=== PATIENT | male | born 1975 | race Caucasian/White ===

== ENCOUNTER 2020-12-27 21:25 | Emergency (ER) | payer MEDICAID ==
[~2020-12-27] VITALS: Ht 170.2 cm; Wt 77.1 kg
[2020-12-27 21:50] VITALS: BP 160/89
--- NOTE | 2020-12-27 21:53 | NUR ---
TO LOBBY A/W BED AMBULATORY
--- NOTE | 2020-12-27 22:28 | NUR ---
SEEN AND EXAMINED BY [facility]HAWN
[2020-12-27] MEDS ORDERED: IBUP-2213 PO (22:38)
== END 2020-12-27 23:26 | disposition home or self-care (01) ==
LOC: MED 21:25
DX: S20.20XA Contusion of thorax, unspecified, initial encounter (principal); Y04.2XXA Assault by strike against or bumped into by another person, initial encounter; Y93.89 Activity, other specified; Y92.89 Other specified places as the place of occurrence of the external cause; Y99.8 Other external cause status
CPT/HCPCS: 71101; 99283